=== PATIENT | female | born 1950 | race Two or more races ===

== ENCOUNTER 2020-04-21 11:03 | Outpatient (CLI) | payer OTHER | END 2020-04-21 11:11 | disposition home or self-care (01) | LOC: EKG 11:03 | PROVIDERS: ATTEND Specialist | DX: Z01.810 Encounter for preprocedural cardiovascular examination (principal); I10 Essential (primary) hypertension ==

== ENCOUNTER 2021-09-27 08:00 | Outpatient (CLI) | payer OTHER | END 2021-09-27 08:30 | disposition home or self-care (01) | LOC: PPH VACUNA 08:00 | PROVIDERS: ATTEND Emergency Medicine Pediatric Emergency Medicine | DX: Z23 Encounter for immunization (principal) ==